=== PATIENT | female | born 1965 ===

== ENCOUNTER 2018-08-27 10:04 | Emergency (ER) | payer BC, OTHER ==
[2017-08-29 14:44] VITALS: BMI 53.5
--- NOTE | 2018-08-27 14:24 | ED PDOC ---
Upper Extremity Pain/Injury Additional Complaint(s): 53 yo female patient present today c/o pain in the L hand that started yesterday after she lift a suit case. Patient reports that she felt a "click" on her wrist and pain started 1 hour later. Otherwise she denies fever, chills, numbness, weakness or tingling, no other injuries or trauma. PMD: [facility] <Soha Napoles - Last Filed: 08/27/18 15:19> <Zac Jones III - Last Filed: 08/29/18 15:47> Time Seen by Provider: 08/27/18 14:01 Chief Complaint (Nursing): Upper Extremity Problem/Injury Supervising Attending Note - Attestation: I have personally seen and examined this patient.: Yes I have fully participated in the care of the patient.: Yes I have reviewed all pertinent clinical information: Yes - Notes: Notes:: pt seen and examined and xray and xray report reviewed placed in volar splint and followup w/ Dr Hare hand/orthopedics referred. Indications for return to ER and splint care were discussed. <Zac Jones III - Last Filed: 08/29/18 15:47> Past Medical History - Medical History PMH: Asthma, HTN - Surgical History Surgical History: Appendectomy, Cholecystectomy - Family History Family History: States: No Known Family Hx <Soha Napoles - Last Filed: 08/27/18 15:19> Vital Signs: Last Vital Signs Temp 97.9 F 08/27/18 15:35 Pulse 82 08/27/18 15:35 Resp 18 08/27/18 15:35 BP 133/69 08/27/18 15:35 Pulse Ox 99 08/27/18 15:35 <Zac Jones III - Last Filed: 08/29/18 15:47> - Home Medications Home Medications: Ambulatory Orders Medication Instructions Recorded Cyclobenzaprine [Cyclobenzaprine 10 mg PO Q8H PRN #12 tab 02/18/17 HCl] - Allergies Allergies/Adverse Reactions: Allergies Allergy/AdvReac Type Severity Reaction Status Date / Time No Known Allergies Allergy Verified 02/18/17 11:44 Review of Systems ROS Statement: Except As Marked, All Systems Reviewed And Found Negative <Soha Napoles - Last Filed: 08/27/18 15:19> Physical Exam - Physical Exam Appears: Positive for: No Acute Distress Head Exam: Positive for: NORMAL INSPECTION Skin: Positive for: Normal Color, Warm, Dry Eye Exam: Positive for: EOMI, PERRL Cardiovascular/Chest: Positive for: Regular Rate, Rhythm. Negative for: Murmur Respiratory: Positive for: Normal Breath Sounds. Negative for: Rales, Rhonchi, Wheezing Pulses-Radial (L): 2+ Pulses-Radial (R): 2+ Gastrointestinal/Abdominal: Positive for: Bowel Sounds, Soft. Negative for: Tenderness Extremity: Positive for: Tenderness (at lateral aspect of hand and wrist.), Swelling (at wrist ). Negative for: Normal ROM (limited due to pain) Neurological/Psych: Positive for: Awake, Alert <Soha Napoles - Last Filed: 08/27/18 15:19> Medical Decision Making Medical Decision Making: DDx includes wrist sprain, fracture, muscle sprain Plan: Ibuprofen 600 mg pO once L hand/wrist Xray Reeval: Patient feeling better, pain improved X ray negative for fracture Volar splint will discharge pt to home, instructions to f/u with PCP and Dr Hare. <Soha Napoles - Last Filed: 08/27/18 15:19> Disposition - Patient ED Disposition Is Patient to be Admitted: No - Disposition Disposition: Routine/Home Disposition Time: 15:00 <Soha Napoles - Last Filed: 08/27/18 15:19> <Zac Jones III - Last Filed: 08/29/18 15:47> - Clinical Impression Clinical Impression: Left wrist sprain - Disposition Referrals: Basilio Hare MD [Medical Doctor] - Condition: STABLE Instructions: Wrist Sprain (DC), Common Wrist Injuries (DC) Forms: [employer] (Romanian)
[2018-08-27 15:56] VITALS: BP 133/69; PULSE 82; RESP 18; TEMP 97.9; O2SAT 99
--- NOTE | 2018-08-28 12:06 | RAD ---
PROCEDURE: Left Hand Radiographs. HISTORY: MD ORDER COMPARISON: None. TECHNIQUE: 3 views obtained. FINDINGS: BONES: Bone alignment and mineralization are normal. There is no acute displaced fracture or bone destruction. JOINTS: Normal. No osteoarthritic changes. SOFT TISSUES: Normal. OTHER FINDINGS: None. IMPRESSION: Normal left hand radiographs.
--- NOTE | 2018-08-28 12:07 | RAD ---
Date of service: Jad quintero annual 08/27/2018 PROCEDURE: Left Wrist Radiographs. HISTORY: MD ORDER COMPARISON: None. TECHNIQUE: 3 views obtained. FINDINGS: BONES: Bone alignment and mineralization are normal. There is no acute displaced fracture or bone destruction. JOINTS: Normal. No dislocation. SOFT TISSUES: Normal. OTHER FINDINGS: None. IMPRESSION: Normal left wrist radiographs.
== END 2018-08-27 15:35 | disposition home or self-care (01) ==
LOC: H.ER 10:04 → H.EDDOWN 10:04 → H.ER 15:35
DX: S63.502A Unspecified sprain of left wrist, initial encounter (principal); X50.9XXA Other and unspecified overexertion or strenuous movements or postures, initial encounter; Y92.89 Other specified places as the place of occurrence of the external cause